=== PATIENT | female | born 1935 | race Caucasian/White ===

== ENCOUNTER 2017-06-19 08:48 | Emergency (ER) | payer MEDICARE, OTHER ==
[2017-06-19] MEDS ORDERED: SODIUM CHLORIDE 0.9% 1,000 ML IV ONE (09:45)
[2017-06-19] MEDS ORDERED: ONDANSETRON 4 MG/2 ML VIAL IVP STA (09:45)
--- NOTE | 2017-06-19 09:47 | ED Physician Documentation ---
PD HPI HEAD INJURY - Stated complaint Stated Complaint: NAUSEA HEAD INJ - Chief complaint Chief Complaint: General - History obtained from History obtained from: Patient, Family - History of Present Illness Mechanism of head injury: Fell Where head injury occurred: Home Timing - onset: How many days ago (2) Location of injury: Right, Front Quality of pain: Pain Associated symptoms: Nausea / vomiting. No: LOC, AMS, Amnesia, Neck pain, Paresthesias, Seizures, Ear drainage, Nasal drainage Symptoms improve with: Rest Symptoms worsen with: Palpation, Movement Contributing factors: No: Anticoagulated Similar symptoms before: Has not had sx before Recently seen: Not recently seen - Additional information Additional information: 81-year-old female is visiting here from [place] and 2 days ago she tripped over a cord and fell onto her face. She denies loss of consciousness with this but did have some nausea associated and some dizziness. She has developed some vomiting last night and has come into the emergency department. She has some persistent nausea. She is not having other symptoms she is not having any visual changes she is denies any pain in her neck denies pain elsewhere denies headache. She urinates a lot at night and this is normal for her. Review of Systems Constitutional: denies: Fever, Chills, Myalgias Eyes: denies: Decreased vision Ears: denies: Ear pain Nose: denies: Rhinorrhea / runny nose, Congestion Throat: denies: Sore throat Cardiac: denies: Chest pain / pressure, Palpitations Respiratory: denies: Dyspnea, Cough GI: reports: Nausea, Vomiting. denies: Abdominal Pain : reports: Frequency. 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 Cardiovascular: Vascular surgery HEENT: Cataracts - Present Medications Home Medications: Ambulatory Orders Medication Instructions Recorded Confirmed Aspirin Chewable [St Gio 81 mg PO DAILY 06/19/17 06/19/17 Aspirin] Atorvastatin Calcium 20 mg PO DAILY 06/19/17 06/19/17 Levothyroxine Sodium 88 mcg PO DAILY 06/19/17 06/19/17 Ondansetron Odt [Zofran] 4 mg TL Q6H PRN #10 tablet 06/19/17 hydroCHLOROthiazide [Hydrodiuril] 25 mg PO DAILY 06/19/17 06/19/17 - Allergies Allergies/Adverse Reactions: Allergies Allergy/AdvReac Type Severity Reaction Status Date / Time codeine Allergy Nausea Verified 06/19/17 09:02 fentanyl Allergy Anaphylaxis Verified 06/19/17 09:02 lisinopril Allergy Unknown Verified 06/19/17 09:02 milk Allergy Cramps Verified 06/19/17 09:02 rosins Allergy Rash Uncoded 06/19/17 09:02 whole wheat Allergy Nausea Uncoded 06/19/17 09:02 - Social History Does the pt smoke?: No Smoking Status: Never smoker PD ED PE NORMAL - Vitals Vital signs reviewed: Yes (Hypertensive mild) - General General: Alert and oriented X 3, No acute distress, Well developed/nourished - HEENT HEENT: Atraumatic, PERRL, EOMI, Pharynx benign, Other (Cerumen in both canals Dry mucous membranes) - Neck Neck: Supple, no meningeal sign, No bony TTP, Other (There is a well-healed endarterectomy scar on the right side) - Cardiac Cardiac: RRR, No murmur - Respiratory Respiratory: No respiratory distress, Clear bilaterally - Abdomen Abdomen: Soft, Non tender - Back Back: No CVA TTP, No spinal TTP - Derm Derm: Normal color, Warm and dry, No rash - Extremities Extremities: No deformity, No edema - Neuro Neuro: No motor deficit, No sensory deficit - Psych Psych: Normal mood, Normal affect Results - Vitals Vitals: Vital Signs - 24 hr 06/19/17 06/19/17 06/19/17 08:56 10:17 11:41 Temperature 36.3 C L 36.8 C Heart Rate 79 70 80 Respiratory 17 15 16 Rate Blood Pressure 149/69 H 148/102 H 132/65 H O2 Saturation 98 98 100 Oxygen O2 Source Room air - Labs Labs: Laboratory Tests 06/19/17 06/19/17 06/19/17 09:57 09:57 09:57 WBC 4.1 L RBC 4.02 L Hgb 12.2 Hct 36.1 L MCV 89.9 MCH 30.3 MCHC 33.7 RDW 14.5 Plt Count 176 MPV 7.9 Neut # 2.7 Lymph # 0.9 L [place] # 0.4 Eos # 0.1 Baso # 0.0 Absolute Nucleated RBC 0.00 Nucleated RBC % 0.0 Sodium 138 Potassium 3.6 Chloride 101 Carbon Dioxide 28 Anion Gap 9.0 BUN 30 H Creatinine 0.8 Estimated GFR (MDRD) 69 L Glucose 106 H Calcium 9.1 Total Bilirubin 0.9 AST 19 ALT 15 Alkaline Phosphatase 65 Troponin I < 0.04 Total Protein 7.2 Albumin 4.1 Globulin 3.1 Albumin/Globulin Ratio 1.3 Lipase 34 Urine Color Urine Clarity Urine pH Ur Specific [place] Urine Protein Urine Glucose (UA) Urine Ketones Urine Occult Blood Urine Nitrite Urine Bilirubin Urine Urobilinogen Ur Leukocyte Esterase Urine RBC Urine WBC Ur Squamous Epith Cells Urine Bacteria Ur Microscopic Review Urine Culture Comments 06/19/17 10:13 WBC RBC Hgb Hct MCV MCH MCHC RDW Plt Count MPV Neut # Lymph # [place] # Eos # Baso # Absolute Nucleated RBC Nucleated RBC % Sodium Potassium Chloride Carbon Dioxide Anion Gap BUN Creatinine Estimated GFR (MDRD) Glucose Calcium Total Bilirubin AST ALT Alkaline Phosphatase Troponin I Total Protein Albumin Globulin Albumin/Globulin Ratio Lipase Urine Color YELLOW Urine Clarity CLEAR Urine pH 7.5 Ur Specific [place] 1.015 Urine Protein NEGATIVE Urine Glucose (UA) NEGATIVE Urine Ketones NEGATIVE Urine Occult Blood NEGATIVE Urine Nitrite NEGATIVE Urine Bilirubin NEGATIVE Urine Urobilinogen 0.2 (NORMAL) Ur Leukocyte Esterase SMALL H Urine RBC 0-5 Urine WBC 0-3 Ur Squamous Epith Cells NONE SEEN Urine Bacteria Rare Ur Microscopic Review INDICATED Urine Culture Comments INDICATED - Rads (name of study) CT head without Radiology: Prelim report reviewed (Impression: Generalized age-related chronic changes without evidence of acute intracranial abnormality.), EMP read indepedently, See rad report Procedures - IVC sono (time) 0940 Bedside IVC sono: IVC measures (cm) (1.22), IVC collapsed c insp (cm) (complete) , Dehydration PD MEDICAL DECISION MAKING - ED course Complexity details: reviewed results, re-evaluated patient, considered differential, d/w patient, d/w family ED course: 81-year-old female who has had a fall onto her face and some nausea with vomiting appears dehydrated on interrogation of the inferior vena cava. She does appear alert oriented and cooperative with a nonfocal neurologic exam. A CT scan of the head is without evidence of intracranial hemorrhage blood work is with only evidence of dehydration. There is no evidence of urinary tract infection. Patient is hydrated in the emergency department with a liter of saline and she is given a dose of Zofran. We have ultimately diagnosed with a concussion and dehydrationWe have ultimately diagnosed with a concussion and dehydration Departure - Departure Disposition: Home, Self Care Clinical Impression: Dehydration Concussion Qualifiers: Encounter type: initial encounter Loss of consciousness presence/duration: without LOC Qualified Code(s): S06.0X0A - Concussion without loss of consciousness, initial encounter Condition: Stable Instructions: ED Concussion, ED Dehydration Follow-Up: Your, doctor [Other] Prescriptions: Ondansetron Odt [Zofran] 4 mg TL Q6H PRN #10 tablet PRN Reason: Nausea / Vomiting Discharge Date/Time: 06/19/17 11:46
[2017-06-19 10:02] LABS: BASOPHILS % (AUTO) 0.6 %; EOSINOPHILS # (AUTO) 0.1 10^3/uL (0.0-0.7); HCT - HEMATOCRIT 36.1 % (37.0-47.0); HGB - HEMOGLOBIN 12.2 g/dL (12.0-16.0); LYMPHOCYTES # (AUTO) 0.9 10^3/uL (1.5-3.5); LYMPHOCYTES % (AUTO) 21.1 %; MEAN CORPUSCULAR HEMOGLOBIN 30.3 pg (27.0-31.0); MEAN CORPUSCULAR HGB CONC 33.7 g/dL (32.0-36.0); MEAN CORPUSCULAR VOLUME 89.9 fL (81.0-99.0); MEAN PLATELET VOLUME 7.9 fL (7.9-10.8); MONOCYTES # (AUTO) 0.4 10^3/uL (0.0-1.0); MONOCYTES % (AUTO) 9.9 %; NEUTROPHILS # (AUTO) 2.7 10^3/uL (1.5-6.6); NEUTROPHILS % (AUTO) 66.4 %; RED BLOOD COUNT 4.02 10^6/uL (4.20-5.40); RED CELL DISTRIBUTION WIDTH 14.5 % (12.0-15.0); UNCORRECTED WHITE BLOOD COUNT 4.1 x10^3/uL; WHITE BLOOD COUNT 4.1 x10^3/uL (4.8-10.8)
[2017-06-19] MEDS ORDERED: ONDANSETRON 4 MG/2 ML VIAL ONE (10:13)
[2017-06-19 10:14] LABS: ALBUMIN/GLOBULIN RATIO 1.3 (1.0-2.2); BILIRUBIN,TOTAL 0.9 mg/dL (0.2-1.0); CALCIUM 9.1 mg/dL (8.5-10.3); CREATININE 0.8 mg/dL (0.4-1.0); POTASSIUM 3.6 mmol/L (3.5-5.0); TOTAL PROTEIN 7.2 g/dL (6.7-8.2)
[2017-06-19 10:24] LABS: BILIRUBIN,URINE NEGATIVE (NEGATIVE); PH,URINE 7.5 PH (5.0-7.5)
[2017-06-19 10:30] LABS: UA w/ MICROSCOPIC CHARGE YES
--- NOTE | 2017-06-19 10:30 | CT Preliminary Report ---
Exam: CT HEAD W/O IMPRESSION: Generalized age-related chronic changes without evidence of acute intracranial abnormalit y. [facility] SITE ID: [id number]
--- NOTE | 2017-06-19 10:33 | CT Report ---
EXAM: CT HEAD EXAM DATE: 06/19/2017 10:08 AM. CLINICAL HISTORY: Fall onto face/ nausea. COMPARISON: None. TECHNIQUE: Multiaxial CT images were obtained from the foramen magnum to the vertex. IV contrast: Non e. Reformats: Coronal. In accordance with CT protocol optimization, one or more of the following dose reduction techniques w ere utilized for this exam: automated exposure control, adjustment of mA and/or KV based on patient s ize, or use of iterative reconstructive technique. FINDINGS: Parenchyma: No intraparenchymal hemorrhage. No evidence of mass, midline shift, or CT findings of acu te infarction. Old right basal ganglia lacunar infarct. Rivers-white differentiation is distinct. Extraaxial Spaces: Normal for age. No subdural or epidural collections identified. Ventricles: The ventricles and cortical sulci are enlarged, consistent with age-related tissue loss. Sinuses: Imaged paranasal sinuses, orbits, and mastoids show no significant abnormality. Bones: No evidence of fracture or calvarial defect. Other: Diffuse chronic microangiopathic white matter changes are evident. IMPRESSION: Generalized age-related chronic changes without evidence of acute intracranial abnormalit y. [facility] Referring Provider Line: [phone] SITE ID: [id number]
[2017-06-19 10:36] LABS: WBC,URINE 0-3 /HPF (0-5)
[2017-06-19 10:37] LABS: UR CULTURE IF IND INDICATED
[2017-06-19 11:41] VITALS: BP 132/65
== END 2017-06-19 11:46 | disposition home or self-care (01) ==
LOC: ED 08:48
DX: E86.0 Dehydration (principal); S06.0X0A Concussion without loss of consciousness, initial encounter; W01.0XXA Fall on same level from slipping, tripping and stumbling without subsequent striking against object, initial encounter; Y92.019 Unspecified place in single-family (private) house as the place of occurrence of the external cause; I10 Essential (primary) hypertension; E78.00 Pure hypercholesterolemia, unspecified; E03.9 Hypothyroidism, unspecified; I73.9 Peripheral vascular disease, unspecified; Z79.82 Long term (current) use of aspirin
CPT/HCPCS: 36415; 70450; 80053; 81001; 81003; 83690; 84484; 85025; 87086; 96361; 96374; 99283; 99284